=== PATIENT | female | born 1955 | race Caucasian/White ===

== ENCOUNTER 2019-03-30 09:45 | Outpatient (CLI) | payer MEDICARE ==
--- NOTE | 2019-03-30 11:03 | MMO ---
Bilateral MAMMO Bilat Screen [facility]. CLINICAL HISTORY: Patient is 64 years old and is seen for screening. The patient has no family history of breast cancer. The patient has no personal history of cancer. VIEWS: The views performed were: bilateral craniocaudal; bilateral mediolateral oblique; and bilateral Implant displaced with tomosynthesis. FILMS COMPARED: The present examination has been compared to prior imaging studies performed at [facility] on 08/07/2005, 05/09/2013 and 09/25/2015. MAMMOGRAM FINDINGS: There are scattered fibroglandular densities. Finding 1: There are stable benign appearing calcifications seen in both breasts. Finding 2: There is an asymmetric implant seen in the CC view only seen in the right breast. There are no suspicious masses, suspicious calcifications, or new areas of architectural distortion. IMPRESSION: FINDING 1: STABLE CALCIFICATIONS IN BOTH BREASTS ARE BENIGN. FINDING 2: IMPLANT FINDING IN THE RIGHT BREAST IS BENIGN. SMALL OUTPOUCHING OF IMPLANT MEDIALLY. A ROUTINE FOLLOW-UP MAMMOGRAM IN 1 YEAR IS RECOMMENDED. THE RESULTS OF THIS EXAM WERE SENT TO THE PATIENT. ACR BI-RADS Category 2 - Benign finding MAMMOGRAPHY NOTE: 1. A negative mammogram report should not delay a biopsy if a dominant of clinically suspicious mass is present. 2. Approximately 10% to 15% of breast cancers are not detected by mammography. 3. Adenosis and dense breasts may obscure an underlying neoplasm.
== END 2019-03-30 09:46 | disposition home or self-care (01) ==
LOC: BICMAMMO 09:45
PROVIDERS: ATTEND Internal Medicine
DX: Z12.31 Encounter for screening mammogram for malignant neoplasm of breast (principal); Z13.820 Encounter for screening for osteoporosis; Z78.0 Asymptomatic menopausal state; R92.1 Mammographic calcification found on diagnostic imaging of breast; Z98.82 Breast implant status
CPT/HCPCS: 77063; 77067

== ENCOUNTER 2019-03-30 09:57 | Outpatient (CLI) | payer MEDICARE ==
--- NOTE | 2019-03-30 10:22 | BD ---
EXAM: DEXA bone density examination HISTORY: 64-year-old postmenopausal female for screening COMPARISON: 11/12/2015, 05/09/2013 FINDINGS: L1--bone mineral density 0.840 g/sq cm; T score -1.4 L2--bone mineral density 0.953 g/sq cm; T score -0.7 L3--bone mineral density 1.022 g/sq cm; T score -0.6 L4--bone mineral density 0.909 g/sq cm; T score -1.4 Total L1-L4--bone mineral density 0.932 g/sq cm; T score -1.0 Left femoral neck--bone mineral density0.678; T score -1.5 Total proximal left femur--bone mineral density 1.001; T score 0.5 IMPRESSION: Osteopenia. Direct comparison to prior scans cannot be performed given dissimilar scan ty pes.
== END 2019-03-30 09:58 | disposition home or self-care (01) ==
LOC: BICMAMMO 09:57
PROVIDERS: ATTEND Internal Medicine
DX: Z13.820 Encounter for screening for osteoporosis (principal); Z78.0 Asymptomatic menopausal state; M85.89 Other specified disorders of bone density and structure, multiple sites
CPT/HCPCS: 77080

== ENCOUNTER 2023-05-28 13:15 | Outpatient (CLI) | payer MEDICARE | END 2023-05-28 13:16 | disposition home or self-care (01) | LOC: RAD 13:15 | PROVIDERS: ATTEND Podiatrist | DX: M20.40 Other hammer toe(s) (acquired), unspecified foot (principal); M20.10 Hallux valgus (acquired), unspecified foot ==

== ENCOUNTER 2023-11-30 11:51 | Outpatient (CLI) | payer MEDICARE | END 2023-11-30 11:52 | disposition home or self-care (01) | LOC: BICMAMMO 11:51 | PROVIDERS: ATTEND Internal Medicine | DX: Z12.31 Encounter for screening mammogram for malignant neoplasm of breast (principal); Z98.82 Breast implant status | CPT/HCPCS: 77063; 77067 ==